=== PATIENT | female | born 1985 | race Two or more races ===

== ENCOUNTER → 2022-12-15 08:20 | Outpatient (CLI) | payer OTHER ==
[2022-12-15 09:00] LABS: HEMATOCRIT 38.5 % (36.0-45.00); HEMOGLOBIN 12.5 g/dL (12.0-15.00); MEAN CELL VOLUME 85.6 fL (80.00-100.00); MEAN CORPUSCULAR HEMOGLOBIN 27.7 pg (27.00-32.0); MEAN CORPUSCULAR HGB CONC 32.4 g/dl (32.0-36.0); RED CELL DISTRIBUTION WIDTH 14.9 % (11.5-14.5)
[2022-12-15 09:01] LABS: PLATELET COUNT 114 K/uL (150-450)
[2022-12-15 09:01] LABS: PH,URINE 6.5 (5.0-8.0); URINE APPEARANCE Clear; URINE BILIRRUBIN Negative (NEGATIVE); URINE BLOOD Large; URINE COLOR Yellow; URINE GLUCOSE Negative (NEGATIVE); URINE LEUKOCYTE Small; URINE NITRATE Negative; URINE PROTEIN Negative (NEGATIVE)
[2022-12-15 09:04] LABS: URINE BACTERIA 109.5 uL (0.0-1933); URINE EPITHELIAL CELLS 21.3 uL (0.0-38.8); URINE WBC 15.2 uL (0.0-23.2)
[2022-12-15 09:43] LABS: ALBUMIN 3.5 gm/dL (3.4-5.0); BILIRUBIN TOTAL 0.87 mg/dL (0.3-1.2); CALCIUM 8.6 mg/dL (8.5-10.1); CHOL HDL RATIO 2.5 (0-5.0); CREATININE SERUM 0.66 mg/dL (0.55-1.02); FREE TRIODOTIRONINE 2.49 pg/ml (2.18-3.98); GFR 101.91; GLOBULINA 3.7 G/DL (2.4-3.5); POTASSIUM 3.59 mEq/L (3.5-5.1); T4 FREE 1.02 NG/ML (0.76-1.46); TOTAL PROTEIN 7.2 gm/dL (6.4-8.2); TSH 0.723 uIU/mL (0.358-3.74)
== END | disposition home or self-care (01) ==
LOC: LAB 08:20
PROVIDERS: ATTEND Obstetrics & Gynecology
DX: N93.8 Other specified abnormal uterine and vaginal bleeding (principal); E03.8 Other specified hypothyroidism; E78.5 Hyperlipidemia, unspecified; E55.9 Vitamin D deficiency, unspecified

== ENCOUNTER 2023-05-03 06:14 | Outpatient (CLI) | payer OTHER ==
[2023-05-03 07:14] LABS: CREATININE SERUM 0.71 mg/dL (0.55-1.02)
== END 2023-05-03 06:15 | disposition home or self-care (01) ==
LOC: LAB 06:14
DX: N23 Unspecified renal colic (principal)

== ENCOUNTER 2023-05-05 07:43 | Outpatient (CLI) | payer OTHER | END 2023-05-05 08:10 | disposition home or self-care (01) | LOC: MRI 07:43 | DX: D06.7 Carcinoma in situ of other parts of cervix (principal); R87.810 Cervical high risk human papillomavirus (HPV) DNA test positive | CPT/HCPCS: 72197; 74182 ==

== ENCOUNTER 2024-08-30 09:02 | Outpatient (CLI) | payer OTHER | END 2024-08-30 09:06 | disposition home or self-care (01) | LOC: SONOGRAMA 09:02 | PROVIDERS: ATTEND Obstetrics & Gynecology Gynecologic Oncology | DX: N30.00 Acute cystitis without hematuria (principal) ==

== ENCOUNTER 2024-08-30 09:33 | Outpatient (CLI) | payer OTHER ==
[2024-08-30 10:21] LABS: BASO % 0.4 % (0.1-1.2); EOS # 0.05 (0.04-0.54); EOS % 0.9 % (0.7-7.0); LYMPH # 1.50 (1.18-3.74); LYMPH % 27.6 % (19.3-53.1); MEAN PLATELET VOLUME 12.20 fl (9.4-12.4); MONO # 0.34 (0.24-0.82); MONO % 6.3 % (4.7-12.5); NEUT # 3.51 (1.56-6.13); NEUT % 64.6 % (34.0-71.1); RED CELL DISTRIBUTION WIDTH 13.8 % (11.6-14.4)
[2024-08-30 11:00] LABS: ALT/SGPT 24.0 U/L (12-78); AST/SGOT 15.0 U/L (15-37); BILIRUBIN TOTAL 1.09 mg/dL (0.3-1.2); BUN CREA RATIO 21.0 (7.0-25.0); CREATININE SERUM 0.67 mg/dL (0.55-1.02); GFR 99.59; GLOBULINA 3.6 G/DL (2.4-3.5); GLUCOSE FASTING 79.0 mg/dL (65-100); OSMOLALITY SERUM 279.0 MOSM/KG (275-295)
[2024-09-01 09:11] LABS: LEUTEINIZING HORMONE 3.3 mIU/mL (.)
== END 2024-08-30 09:37 | disposition home or self-care (01) ==
LOC: LAB 09:33
PROVIDERS: ATTEND Obstetrics & Gynecology Gynecologic Oncology
DX: I10 Essential (primary) hypertension (principal)